=== PATIENT | female | born 1985 | race Caucasian/White ===

== ENCOUNTER 2016-09-17 00:13 | Emergency (ER) | payer BC ==
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
--- NOTE | 2016-09-17 03:01 | ED ORDER SUMMARY ---
..... Patient: RAMOS AGUIRRE OrderSheet [facility] VisitID: [id number] [place] [address] 31y, F Registration Date/Time: 09/17/2016 ORDER SHEET Weight: 65.7 kg (stated) Allergies: None GENERAL ORDERS: US Pelvic Complete w Transvag Urgent (01:09/17/2016 Patience ALMONTE) (Ack 1:12 RKindianauga) (2:48 RKaruga) CBC w Diff Urgent (:09/17/2016 Patience ALMONTE) (Ack 1:12 RKindianauga) (1:43 CBradburn R.N.) CMP Urgent (:09/17/2016 Patience ALMONTE) (Ack 1:12 RKindian[place]a) (1:43 CBchidiburn R.N.) UA-Culture if indicated Urgent (:09/17/2016 Patience ALMONTE) (Ack 1:12 RKindianauga) (1:43 CBradburn R.N.) Urine Urgent (:09/17/2016 Patience ALMONTE) (Ack 1:12 RKindian[place]a) (1:43 CBradburn R.N.) Lipase Urgent (:09/17/2016 Patience ALMONTE) (Ack 1:12 RKindian[place]a) (1:43 DONNIEradburn R.N.) Amylase Urgent (:09/17/2016 Patience ALMONTE) (Ack 1:12 Selinauga) (1:43 CBradburn R.N.) MEDICATION ORDERS: IV FLUIDS: IV NS : initial bolus none -, then 250 mL/hr for 4h (NOW); Routine (:09/17/2016 Patience ALMONTE) (1:45 Jennifer R.N.) Zofran IV 4 mg (NOW) (:09/17/2016 Patience ALMONTE) (1:46 CBhomar R.N.) Dilaudid IV 0.5 mg (NOW) (01:09/17/2016 Patience ALMONTE) (1:45 Jennifer R.N.) Dilaudid IV 0.5 mg (NOW) (01:55 09/17/2016 Patience ALMONTE) (2:04 Jennifer Fitzpatrick) ORDER SHEET NOTES: [Electronically signed by Lida Klein R.N. (03:20 09/17/2016)] [Electronically signed by Flavio Walden MD (07:42 09/18/2016)] [Electronically locked/signed by Lida Klein R.N. (03:09/17/2016)]
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
--- NOTE | 2016-09-17 03:01 | ED ORDER SUMMARY ---
..... Patient: RAMOS AGUIRRE OrderSheet [facility] VisitID: [id number] [place] [address] 31y, F Registration Date/Time: 09/17/2016 ORDER SHEET Weight: 65.7 kg (stated) Allergies: None GENERAL ORDERS: US Pelvic Complete w Transvag Urgent (01:09/17/2016 Patience ALMONTE) (Ack 1:12 RKindianauga) (2:48 RKaruga) CBC w Diff Urgent (:09/17/2016 Patience ALMONTE) (Ack 1:12 RKindianauga) (1:43 CBradburn R.N.) CMP Urgent (:09/17/2016 Patience ALMONTE) (Ack 1:12 RKindianauga) (1:43 CBchidiburn R.N.) UA-Culture if indicated Urgent (:09/17/2016 Patience ALMONTE) (Ack 1:12 RKindianauga) (1:43 CBradburn R.N.) Urine Urgent (:09/17/2016 Patience ALMONTE) (Ack 1:12 RKindianauga) (1:43 CBradburn R.N.) Lipase Urgent (:09/17/2016 Patience ALMONTE) (Ack 1:12 RKindian[place]a) (1:43 DONNIEradburn R.N.) Amylase Urgent (:09/17/2016 Patience ALMONTE) (Ack 1:12 Selinauga) (1:43 CBradburn R.N.) MEDICATION ORDERS: IV FLUIDS: IV NS : initial bolus none -, then 250 mL/hr for 4h (NOW); Routine (:09/17/2016 Patience ALMONTE) (1:45 Jennifer R.N.) Zofran IV 4 mg (NOW) (:09/17/2016 Patience ALMONTE) (1:46 CBhomar R.N.) Dilaudid IV 0.5 mg (NOW) (01:09/17/2016 Patience ALMONTE) (1:45 Jennifer R.N.) Dilaudid IV 0.5 mg (NOW) (01:55 09/17/2016 Patience ALMONTE) (2:04 Jennifer Fitzpatrick) ORDER SHEET NOTES: [Electronically signed by Lida Klein R.N. (03:20 09/17/2016)] [Electronically signed by Flavio Walden MD (07:42 09/18/2016)] [Electronically locked/signed by Lida Klein R.N. (03:09/17/2016)]
--- NOTE | 2016-09-17 05:49 | DIAGNOSTIC IMAGING REPORT ---
PROCEDURE: US COMPLETE PELVIC W/TRANSVAG INDICATION: Pelvic pain. TECHNIQUE: Transabdominal and endovaginal pina scale and color Doppler sonographic images of the female pelvis were obtained. Multimedia Services Coordinator R, ED). COMPARISON: None. FINDINGS: TRANSABDOMINAL SCANS: Uterus is of normal size (5.2 x 5.0 x 3.0 cm). Kidneys are normal. TRANSVAGINAL SCANS: There is a curvilinear IUD within the endometrial canal. Endometrial thickness is normal (4 mm). Small cervical Nabothian cysts. Right ovary is normal (3.9 cm). Left ovary is not visualized, but no evidence of adnexal mass. Small amount of free fluid in the pelvis. Ectopic is not completely excluded on the basis of the study. IMPRESSION: 1. Small amount of free fluid in the pelvis. Consider occult ruptured ovarian cyst. 2. Otherwise negative pelvic ultrasound.
--- NOTE | 2016-09-18 07:42 | ED MED RECONCILIATION SUMMARY ---
Patient: RAMOS AGUIRRE Medication Reconciliation Report [facility] VisitID: [id number] [address] [place] [address] 31y, F Registration Date/Time: 09/17/2016 Weight: 65.7 kg Height/Length: 64 in. BMI: 24.9 ALLERGIES: None The patient's Home Medications are listed below: CONTINUE TAKING THE FOLLOWING MEDICATIONS: Omeprazole Oral The source(s) of the original Home Medication information: patient The following Medications were given to the patient in the Emergency Department: IV NS IV Fluids bolus 0, then 250 mL/hr, administered: 09/17/2016 1:35:00 AM Dilaudid [IVP] IVP 0.5 mg, administered: 09/17/2016 1:35:00 AM Zofran [IVP] IVP 4 mg, administered: 09/17/2016 1:37:00 AM Dilaudid [IVP] IVP 0.5 mg, administered: 09/17/2016 2:03:00 AM The following Medications were prescribed to the patient: Take ibuprofen (Advil, Nuprin, etc.) according to label instructions. Available over the counter. -- Flavio Walden MD Zofran (orally disintegrating tablets) 4 mg: take 1 orally every 6 hours as needed for nausea. Dispense ten (10). No refill. -- Flavio Walden MD Oxycodone/APAP 5 mg/325 mg: take 1-2 tablets orally every 4 hours as needed for pain. Dispense twenty-five (25). No refill. -- Flavio Walden MD
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
--- NOTE | 2016-09-18 07:42 | ED MAR SUMMARY ---
..... Medication Administration Record [facility] [address] [place] [address] Patient: RAMOS AGUIRRE Visit ID: [id number] 31y, F Weight: 65.7 kg Height/Length: 64 in BMI: 24.9 ALLERGIES: None Start 01:35 09/17/2016 Lida Klein R.N., Stop 03:14 09/17/2016 Lida Klein R.N. Medication Administered: IV NS (SALINE), Dose: IV Fluids over 4 hour(s), Rate: 250 mL/hr, Dispensed: 1000 mL bag, Site: #1 left AC. Medication Ordered: IV NS : initial bolus none -, then 250 mL/hr for 4h (NOW); Routine. Given 01:35 09/17/2016 Lida Klein R.N. Medication Administered: DILAUDID [IVP] (HYDROMORPHONE HCL PF), Dose: 0.5 mg IVP over 2 minute(s), Site: #1 left AC. Medication Ordered: Dilaudid IV 0.5 mg (NOW). Given 01:37 09/17/2016 Lida Klein R.N. Medication Administered: ZOFRAN [IVP] (ONDANSETRON HCL), Dose: 4 mg IVP over 2 minute(s), Site: #1 left AC. Medication Ordered: Zofran IV 4 mg (NOW). Given 02:03 09/17/2016 Lida Klein R.N. Medication Administered: DILAUDID [IVP] (HYDROMORPHONE HCL PF), Dose: 0.5 mg IVP over 2 minute(s), Site: #1 left AC. Medication Ordered: Dilaudid IV 0.5 mg (NOW).
--- NOTE | 2016-09-18 07:42 | ED MED RECONCILIATION SUMMARY ---
Patient: RAMOS AGUIRRE Medication Reconciliation Report [facility] VisitID: [id number] [address] [place] [address] 31y, F Registration Date/Time: 09/17/2016 Weight: 65.7 kg Height/Length: 64 in. BMI: 24.9 ALLERGIES: None The patient's Home Medications are listed below: CONTINUE TAKING THE FOLLOWING MEDICATIONS: Omeprazole Oral The source(s) of the original Home Medication information: patient The following Medications were given to the patient in the Emergency Department: IV NS IV Fluids bolus 0, then 250 mL/hr, administered: 09/17/2016 1:35:00 AM Dilaudid [IVP] IVP 0.5 mg, administered: 09/17/2016 1:35:00 AM Zofran [IVP] IVP 4 mg, administered: 09/17/2016 1:37:00 AM Dilaudid [IVP] IVP 0.5 mg, administered: 09/17/2016 2:03:00 AM The following Medications were prescribed to the patient: Take ibuprofen (Advil, Nuprin, etc.) according to label instructions. Available over the counter. -- Flavio Walden MD Zofran (orally disintegrating tablets) 4 mg: take 1 orally every 6 hours as needed for nausea. Dispense ten (10). No refill. -- Flavio Walden MD Oxycodone/APAP 5 mg/325 mg: take 1-2 tablets orally every 4 hours as needed for pain. Dispense twenty-five (25). No refill. -- Flavio Walden MD
--- NOTE | 2016-09-18 07:42 | ED DISCHARGE INSTRUCTIONS ---
Patient: RAMOS AGUIRRE General Instructions [facility] VisitID: [id number] [place] [address] 31y, F Registration Date/Time: 09/17/2016 Torn abdominal wall adhesions over scar. INSTRUCTIONS No strenuous activity. Rest. Drink plenty of fluids. No sexual contact until symptoms resolve. Warnings: Further evaluation is necessary. SEDATIVE MEDICATION: You were given sedative medication during your visit. Do not drive or operate dangerous machinery. GENERAL WARNINGS: Return or contact your physician immediately if your condition worsens or changes unexpectedly, if not improving as expected, or if other problems arise. Your Current Medications: CONTINUE TAKING THE FOLLOWING MEDICATIONS: Omeprazole Oral. Prescription Medications: Zofran (orally disintegrating tablets) 4 mg: take 1 orally every 6 hours as needed for nausea. Dispense ten (10). No refill. Oxycodone/APAP 5 mg/325 mg: take 1-2 tablets orally every 4 hours as needed for pain. Dispense twenty-five (25). No refill. OTC Medications: Take ibuprofen (Advil, Nuprin, etc.) according to label instructions. Available over the counter. Follow-up: Follow up with a probate clerk in one week. Call for an appointment. Understanding of the discharge instructions verbalized by patient. Discharge instructions reviewed with and understanding was verbalized by length control tester. ADDITIONAL INFORMATION Ondansetron Oral disintegrating tablet What is this medicine? ONDANSETRON (on MARCO ANTONIO se brady) is used to treat nausea and vomiting caused by chemotherapy. It is also used to prevent or treat nausea and vomiting after surgery. How should I use this medicine? These tablets are made to dissolve in the mouth. Do not try to push the tablet through the foil backing. With dry hands, peel away the foil backing and gently remove the tablet. Place the tablet in the mouth and allow it to dissolve, then swallow. While you may take these tablets with water, it is not necessary to do so. Talk to your budget report clerk regarding the use of this medicine in children. Special care may be needed. What side effects may I notice from receiving this medicine? Side effects that you should report to your doctor or health acute care physician as soon as possible: allergic reactions like skin rash, itching or hives, swelling of the face, lips, or tongue breathing problems dizziness fast or irregular heartbeat feeling faint or lightheaded, falls fever and chills swelling of the hands and feet tightness in the chest Side effects that usually do not require medical attention (report to your doctor or health acute care physician if they continue or are bothersome): constipation or diarrhea headache What may interact with this medicine? Do not take this medicine with any of the following medications: -apomorphine -cisapride -dofetilide -dronedarone -pimozide -thioridazine -ziprasidone This medicine may also interact with the following medications: -carbamazepine -phenytoin -rifampicin -tramadol -other medicines that prolong the QT interval (cause an abnormal heart rhythm) What if I miss a dose? If you miss a dose, take it as soon as you can. If it is almost time for your next dose, take only that dose. Do not take double or extra doses. Where should I keep my medicine? Keep out of the reach of children. Store between 2 and 30 degrees C (36 and 86 degrees F). Throw away any unused medicine after the expiration date. What should I tell my health care provider before I take this medicine? They need to know if you have any of these conditions: heart disease history of irregular heartbeat liver disease low levels of magnesium or potassium in the blood an unusual or allergic reaction to ondansetron, granisetron, other medicines, foods, dyes, or preservatives or trying to get breast-feeding What should I watch for while using this medicine? Check with your doctor or health acute care physician as soon as you can if you have any sign of an allergic reaction. Oxycodone Hydrochloride, Acetaminophen Oral tablet What is this medicine? ACETAMINOPHEN; OXYCODONE (a set a DENTON miriam fen; ox i KOE done) is a pain reliever. It is used to treat mild to moderate pain. How should I use this medicine? Take this medicine by mouth with a full glass of water. Follow the directions on the prescription label. Take your medicine at regular intervals. Do not take your medicine more often than directed. Talk to your budget report clerk regarding the use of this medicine in children. Special care may be needed. Patients over 65 years old may have a stronger reaction and need a smaller dose. What side effects may I notice from receiving this medicine? Side effects that you should report to your doctor or health acute care physician as soon as possible: allergic reactions like skin rash, itching or hives, swelling of the face, lips, or tongue breathing difficulties, wheezing confusion light headedness or fainting spells severe stomach pain yellowing of the skin or the whites of the eyes Side effects that usually do not require medical attention (report to your doctor or health acute care physician if they continue or are bothersome): dizziness drowsiness nausea vomiting What may interact with this medicine? alcohol antihistamines barbiturates like amobarbital, butalbital, butabarbital, methohexital, pentobarbital, phenobarbital, thiopental, and secobarbital benztropine drugs for bladder problems like solifenacin, trospium, oxybutynin, tolterodine, hyoscyamine, and methscopolamine drugs for breathing problems like ipratropium and tiotropium drugs for certain stomach or intestine problems like propantheline, homatropine methylbromide, glycopyrrolate, atropine, belladonna, and dicyclomine general anesthetics like etomidate, ketamine, nitrous oxide, propofol, desflurane, enflurane, halothane, isoflurane, and sevoflurane medicines for depression, anxiety, or psychotic disturbances medicines for sleep muscle relaxants naltrexone narcotic medicines (opiates) for pain phenothiazines like perphenazine, thioridazine, chlorpromazine, mesoridazine, fluphenazine, prochlorperazine, promazine, and trifluoperazine scopolamine tramadol trihexyphenidyl What if I miss a dose? If you miss a dose, take it as soon as you can. If it is almost time for your next dose, take only that dose. Do not take double or extra doses. Where should I keep my medicine? Keep out of the reach of children. This medicine can be abused. Keep your medicine in a safe place to protect it from theft. Do not share this medicine with anyone. Selling or giving away this medicine is dangerous and against the law. Store at room temperature between 20 and 25 degrees C (68 and 77 degrees F). Keep container tightly closed. Protect from light. This medicine may cause accidental overdose and if it is taken by other adults, children, or pets. Flush any unused medicine down the toilet to reduce the chance of harm. Do not use the medicine after the expiration date. What should I tell my health care provider before I take this medicine? They need to know if you have any of these conditions: brain tumor Crohn's disease, inflammatory bowel disease, or ulcerative colitis drink more than 3 alcohol containing drinks per day drug abuse or addiction head injury heart or circulation problems kidney disease or problems going to the bathroom liver disease lung disease, asthma, or breathing problems an unusual or allergic reaction to acetaminophen, oxycodone, other opioid analgesics, other medicines, foods, dyes, or preservatives or trying to get breast-feeding What should I watch for while using this medicine? Tell your doctor or health acute care physician if your pain does not go away, if it gets worse, or if you have new or a different type of pain. You may develop tolerance to the medicine. Tolerance means that you will need a higher dose of the medication for pain relief. Tolerance is normal and is expected if you take this medicine for a long time. Do not suddenly stop taking your medicine because you may develop a severe reaction. Your body becomes used to the medicine. This does NOT mean you are addicted. Addiction is a behavior related to getting and using a drug for a non-medical reason. If you have pain, you have a medical reason to take pain medicine. Your doctor will tell you how much medicine to take. If your doctor wants you to stop the medicine, the dose will be slowly lowered over time to avoid any side effects. You may get drowsy or dizzy. Do not drive, use machinery, or do anything that needs mental alertness until you know how this medicine affects you. Do not stand or sit up quickly, especially if you are an older patient. This reduces the risk of dizzy or fainting spells. Alcohol may interfere with the effect of this medicine. Avoid alcoholic drinks. There are different types of narcotic medicines (opiates) for pain. If you take more than one type at the same time, you may have more side effects. Give your health care provider a list of all medicines you use. Your doctor will tell you how much medicine to take. Do not take more medicine than directed. Call emergency for help if you have problems breathing. The medicine will cause constipation. Try to have a bowel movement at least every 2 to 3 days. If you do not have a bowel movement for 3 days, call your doctor or health acute care physician. Do not take Tylenol (acetaminophen) or medicines that have acetaminophen with this medicine. Too much acetaminophen can be very dangerous. Many nonprescription medicines contain acetaminophen. Always read the labels carefully to avoid taking more acetaminophen. You have been given the following additional information: Ondansetron Oral disintegrating tablet Oxycodone Hydrochloride, Acetaminophen Oral tablet No strenuous activity. Rest. (Electronically signed by Flavio Walden MD 09/18/2016 7:42)
--- NOTE | 2016-09-18 07:42 | ED MAR SUMMARY ---
..... Medication Administration Record [facility] [address] [place] [address] Patient: RAMOS AGUIRRE Visit ID: [id number] 31y, F Weight: 65.7 kg Height/Length: 64 in BMI: 24.9 ALLERGIES: None Start 01:35 09/17/2016 Lida Klein R.N., Stop 03:14 09/17/2016 Lida Klein R.N. Medication Administered: IV NS (SALINE), Dose: IV Fluids over 4 hour(s), Rate: 250 mL/hr, Dispensed: 1000 mL bag, Site: #1 left AC. Medication Ordered: IV NS : initial bolus none -, then 250 mL/hr for 4h (NOW); Routine. Given 01:35 09/17/2016 Lida Klein R.N. Medication Administered: DILAUDID [IVP] (HYDROMORPHONE HCL PF), Dose: 0.5 mg IVP over 2 minute(s), Site: #1 left AC. Medication Ordered: Dilaudid IV 0.5 mg (NOW). Given 01:37 09/17/2016 Lida Klein R.N. Medication Administered: ZOFRAN [IVP] (ONDANSETRON HCL), Dose: 4 mg IVP over 2 minute(s), Site: #1 left AC. Medication Ordered: Zofran IV 4 mg (NOW). Given 02:03 09/17/2016 Lida Klein R.N. Medication Administered: DILAUDID [IVP] (HYDROMORPHONE HCL PF), Dose: 0.5 mg IVP over 2 minute(s), Site: #1 left AC. Medication Ordered: Dilaudid IV 0.5 mg (NOW).
== END 2016-09-17 03:10 | disposition home or self-care (01) ==
LOC: ED SRH 00:13
DX: N99.4 Postprocedural pelvic peritoneal adhesions (principal); Z72.0 Tobacco use; Z79.899 Other long term (current) drug therapy
CPT/HCPCS: 90004; 90100; 92235; 92530; 93070; 95059